=== PATIENT | female | born 1990 | race Caucasian/White ===

== ENCOUNTER 2016-06-08 01:45 | Emergency (ER) | payer MEDICAID ==
[~2016-06-08] VITALS: Ht 149.9 cm; Wt 45.4 kg
[2016-06-08 01:56] VITALS: BP 128/76
--- NOTE | 2016-06-08 02:16 | NUR ---
AMBULATED TO ER BED 5
--- NOTE | 2016-06-08 02:18 | NUR ---
26Y F BIB BOYFRIEND C/O OF ABDOMINAL PAIN AND VOMITTING STARTED FEW HOURS AGO. NO DISTRESS NOTED AND V/S STABLE.
--- NOTE | 2016-06-08 02:21 | NUR ---
Patient being evaluated by physician at bedside.
[2016-06-08] MEDS ORDERED: ONDANSETRON 4 MG ODT PO ONE (02:25)
[2016-06-08] MEDS ORDERED: KETOROLAC 60 MG/2 ML VIAL IM ONE (02:25)
--- NOTE | 2016-06-08 02:56 | NUR ---
Patient discharged with v/s stable. Written and verbal after care instructions given and explained. Patient alert, oriented and verbalized understanding of instructions. Ambulatory with steady gait. All questions addressed prior to discharge. ID band removed. Patient advised to follow up with PMD. Rx of ZOFRAN AND MOTRIN given. Patient educated on indication of medication including possible reaction and side effects. Opportunity to ask questions provided and answered.
[2016-06-08 02:57] VITALS: BP 128/76
== END 2016-06-08 02:56 | disposition home or self-care (01) ==
LOC: MED 01:45
DX: B34.9 Viral infection, unspecified (principal); R03.0 Elevated blood-pressure reading, without diagnosis of hypertension
CPT/HCPCS: 81002; 81025; 96372; 99283; J1885; S0119